=== PATIENT | male | born 1965 | race Caucasian/White ===

== ENCOUNTER 2020-04-12 12:06 | Emergency (ER) | payer MEDICAID ==
[~2020-04-12] VITALS: Ht 167.6 cm; Wt 83.9 kg
[2020-04-12 12:10] VITALS: BP_SYST 124
--- NOTE | 2020-04-12 12:15 | NUR ---
Patient triaged and placed in waiting room. VSS and patient appears in no acute distress at this time. Accompanied by SELF, awaiting available bed, and MD notified of need for MSE.
--- NOTE | 2020-04-12 14:02 | NUR ---
DR MERCER TO TRIAGE ROOM TO EVALUATE PT.
[2020-04-12 14:05] LABS: BASOPHILS % (AUTO) 0.3 % (0.0-2.0); EOSINOPHILS # (AUTO) 0.1 K/uL (0.0-0.4); EOSINOPHILS % (AUTO) 2.1 % (0.0-4.0); HEMATOCRIT 49.7 % (36-54); HEMOGLOBIN 16.9 g/dL (14.0-18.0); LYMPHOCYTES # (AUTO) 1.7 K/uL (1.0-5.5); LYMPHOCYTES % (AUTO) 27.8 % (20.5-51.5); MEAN CORPUSCULAR HEMOGLOBIN 30 pg (27-31); MEAN CORPUSCULAR HGB CONC 34 % (32-36); MEAN CORPUSCULAR VOLUME 89 fL (79.0-98.0); MONOCYTES # (AUTO) 0.6 K/uL (0.0-1.0); MONOCYTES % (AUTO) 9.1 % (1.7-9.3); NEUTROPHILS # (AUTO) 3.7 K/uL (1.8-7.7); NEUTROPHILS % (AUTO) 60.7 % (40.0-70.0); PLATELET COUNT (AUTO) 209 K/uL (130-430); RED BLOOD CELL COUNT(AUTO) 5.56 MIL/uL (4.2-6.2); WHITE BLOOD COUNT (AUTO) 6.1 K/uL (4.8-10.8)
[2020-04-12 14:19] LABS: CALCIUM 8.8 mg/dL (8.4-11.0); POTASSIUM 4.5 mmol/L (3.5-5.1)
[2020-04-12 14:25] LABS: ALBUMIN 3.9 g/dL (3.4-4.8); TOTAL BILIRUBIN 0.5 mg/dL (0.0-1.0)
--- NOTE | 2020-04-12 15:19 | NUR ---
Patient given written and verbal discharge instructions and verbalizes understanding. ER MD discussed with patient the results and treatment provided. Patient in stable condition. ID arm band removed. Rx of NORCO given. Patient educated on pain management and to follow up with PMD. Pain Scale 0/10. Opportunity for questions provided and answered. Medication side effect fact sheet provided.
[2020-04-12 15:20] VITALS: BP_SYST 131
== END 2020-04-12 15:20 | disposition home or self-care (01) ==
LOC: SED 12:06
DX: R10.11 Right upper quadrant pain (principal)
CPT/HCPCS: 36415; 80053; 83690-TC; 85025; 99283

== ENCOUNTER 2020-10-12 14:14 | Emergency (ER) | payer MEDICAID ==
[~2020-10-12] VITALS: Ht 167.6 cm; Wt 93.0 kg
[2020-10-12 14:21] VITALS: BP_SYST 162
[2020-10-12] MEDS ORDERED: TRAM50TA PO (15:50)
[2020-10-12 15:57] VITALS: BP_SYST 162
== END 2020-10-12 15:58 | disposition home or self-care (01) ==
LOC: EDBD 14:14 → SED 14:14
DX: M79.671 Pain in right foot (principal); Z79.899 Other long term (current) drug therapy
CPT/HCPCS: 99283